=== PATIENT | female | born 1990 | race African-American/Black ===

== ENCOUNTER 2018-07-10 07:47 | Emergency (ER) | payer MEDICARE, MEDICAID ==
[~2018-07-10] VITALS: Ht 160 cm; Wt 59.0 kg
[~2018-07-10 07:47] MED LIST: FEOSOL45 MG PO; FIORICET PO; LORTAB 5-325 MG1 TAB PO
[2018-07-10 08:43] LABS: HEMATOCRIT 42.7 % (37.0-47.0); HEMOGLOBIN 14.6 g/dl (12.0-16.0); MEAN CORPUSCULAR HGB 30.5 pG CALC (26.0-32.0); MEAN CORPUSCULAR HGB CONC 34.2 g/L CALC (32.0-36.0); NEUT# 1.66 thou/uL (2.00-7.15); RED BLOOD COUNT 4.78 mill/uL (4.20-5.60); RED CELL DISTRI WIDTH 12.4 % (11.5-15.5)
[2018-07-10 09:01] LABS: URINE BILIRUBIN - DIPSTICK NEGATIVE (NEGATIVE); URINE BLOOD DIPSTICK NEGATIVE (NEGATIVE); URINE COLOR YELLOW; URINE GLUCOSE - DIPSTICK NEGATIVE (NEGATIVE); URINE KETONE NEGATIVE (NEGATIVE); URINE LEUK ESTERASE NEGATIVE (NEGATIVE); URINE NITRITE - DIPSTICK NEGATIVE (Negative); URINE PH 7.5 (4.5-8.0); URINE PROTEIN - DIPSTICK NEGATIVE (NEG-TRACE); URINE SPECIFIC GRAVITY <=1.005; URINE UROBILINOGEN - DIPSTICK 0.2 E.U./dL (0.2)
[2018-07-10 09:02] LABS: ALBUMIN 4.5 g/dL (3.2-5.0); ALKALINE PHOSPHATASE 45 u/l (38-126); ANION GAP 16 (6-22 (CALC)); BILIRUBIN, TOTAL 0.7 mg/dL (0.0-1.4); BUN 6 mg/dL (7-17); BUN/CREATININE RATIO 10 (12-20 (CALC)); CARBON DIOXIDE 25 mmol/l (22-30); CHLORIDE 104 mmol/l (95-108); CREATININE 0.6 mg/dL (0.5-1.0); GFR > 60 ML/MIN (>=60 (CALC)); GFR FOR AFR.AMER. > 60 ML/MIN (>=60 (CALC)); LIPASE 59 u/l (23-300); POTASSIUM 3.5 mmol/l (3.5-5.1); SGOT/AST 28 u/l (14-36); SGPT/ALT 106 u/l (9-52); SODIUM 142 mmol/l (137-146)
[2018-07-10 09:03] LABS: MEAN CELL VOLUME 89.3 fL CALC (80.0-100.0)
[2018-07-10 09:04] LABS: URINE CLARITY CLEAR
[2018-07-10 09:22] LABS: BETA-HCG, QUANT(RESULT NUMBER) <2 mIU/mL
[2018-07-10] MEDS ORDERED: RANITIDINE75 MG/5 M1 PO (11:33)
[2018-07-10 11:53] VITALS: BP 118/68
== END 2018-07-10 12:00 | disposition home or self-care (01) ==
LOC: ED 07:47
PROVIDERS: Family Medicine
DX: R10.33 Periumbilical pain (principal)

== ENCOUNTER 2018-08-18 10:03 | Emergency (ER) | payer MEDICARE, MEDICAID ==
[~2018-08-18] VITALS: Ht 160 cm; Wt 60.8 kg
[~2018-08-18 10:03] MED LIST changes: +RANITIDINE75 MG/5 M1 PO
[2018-08-18 10:30] LABS: URINE BILIRUBIN - DIPSTICK NEGATIVE (NEGATIVE); URINE BLOOD DIPSTICK LARGE (NEGATIVE); URINE CLARITY SL CLOUDY; URINE COLOR YELLOW; URINE GLUCOSE - DIPSTICK NEGATIVE (NEGATIVE); URINE KETONE NEGATIVE (NEGATIVE); URINE LEUK ESTERASE NEGATIVE (NEGATIVE); URINE NITRITE - DIPSTICK NEGATIVE (Negative); URINE PH 7.5 (4.5-8.0); URINE PROTEIN - DIPSTICK NEGATIVE (NEG-TRACE); URINE SPECIFIC GRAVITY 1.015
[2018-08-18 10:38] LABS: URINE SQUAMOUS EPITHELIAL CELL MODERATE EPI/hpf (0-FEW)
[2018-08-18 10:39] LABS: URINE BACTERIA FEW hpf; URINE MUCUS FEW hpf (NONE-FEW)
[2018-08-18 11:37] VITALS: BP 124/87
== END 2018-08-18 11:47 | disposition home or self-care (01) ==
LOC: ED 10:03
PROVIDERS: Family Medicine
DX: N91.2 Amenorrhea, unspecified (principal)

== ENCOUNTER 2019-08-19 23:20 | Emergency (ER) | payer MEDICARE, MEDICAID ==
[~2019-08-19] VITALS: Ht 160 cm; Wt 61.4 kg
[2019-08-20] MEDS ORDERED: TORADOL PO (01:56)
[2019-08-20 02:00] VITALS: BP 118/74
== END 2019-08-20 02:00 | disposition home or self-care (01) ==
LOC: ED 23:20
DX: S16.1XXA Strain of muscle, fascia and tendon at neck level, initial encounter (principal); S29.012A Strain of muscle and tendon of back wall of thorax, initial encounter; Y04.2XXA Assault by strike against or bumped into by another person, initial encounter

== ENCOUNTER 2020-03-12 13:50 | Emergency (ER) | payer MEDICARE, MEDICAID ==
[~2020-03-12 13:50] MED LIST changes: +TORADOL PO
[2020-03-12] MEDS ORDERED: FLOXIN OTIC0.3 % OT (14:20)
[2020-03-12] MEDS ORDERED: TRIAMCINOLON0.13 EX (14:21)
[2020-03-12 14:34] VITALS: BP 139/77
== END 2020-03-12 14:30 | disposition home or self-care (01) ==
LOC: ED 13:50
DX: H60.92 Unspecified otitis externa, left ear (principal); L21.0 Seborrhea capitis

== ENCOUNTER 2021-09-13 20:00 | Observation (INO) | payer MEDICARE, MEDICAID ==
[~2021-09-13] VITALS: Ht 160 cm; Wt 53.0 kg
[~2021-09-13 20:00] MED LIST changes: +FLOXIN OTIC0.3 % OT; +TRIAMCINOLON0.13 EX
[2021-09-13 21:26] LABS: HEMATOCRIT 44.8 % (37.0-47.0); HEMOGLOBIN 15.5 g/dl (12.0-16.0); IMMATURE GRANULOCYTES 0.2 % (0.0-5.0); MEAN CELL VOLUME 88.2 fL CALC (80.0-100.0); MEAN CORPUSCULAR HGB 30.5 pG CALC (26.0-32.0); MEAN CORPUSCULAR HGB CONC 34.6 g/dL CAL (32.0-36.0); NEUT# 10.44 thou/uL (2.00-7.15); RED BLOOD COUNT 5.08 mill/uL (4.20-5.60); RED CELL DISTRI WIDTH 12.2 % (11.5-15.5); URINE BILIRUBIN - DIPSTICK NEGATIVE (NEGATIVE); URINE BLOOD DIPSTICK NEGATIVE (NEGATIVE); URINE COLOR YELLOW; URINE GLUCOSE - DIPSTICK NEGATIVE (NEGATIVE); URINE KETONE >=80 mg/dL (NEGATIVE); URINE LEUK ESTERASE NEGATIVE (NEGATIVE); URINE PH 8.5 (4.5-8.0); URINE PROTEIN - DIPSTICK TRACE mg/dL (NEG-TRACE); URINE SPECIFIC GRAVITY 1.015; URINE UROBILINOGEN - DIPSTICK 0.2 E.U./dL (0.2)
[2021-09-13 21:27] LABS: URINE NITRITE - DIPSTICK NEGATIVE (Negative)
[2021-09-13 21:39] LABS: ANION GAP 19 (6-22 (CALC)); BUN 11 mg/dL (7-17); BUN/CREATININE RATIO 18 (12-20 (CALC)); CARBON DIOXIDE 20 mmol/l (22-30); CHLORIDE 104 mmol/l (95-108); CREATININE 0.6 mg/dL (0.5-1.0); ETHYL ALCOHOL 0 mg/dl (0-30); GFR > 60 ML/MIN (>=60 (CALC)); GFR FOR AFR.AMER. > 60 ML/MIN (>=60 (CALC)); LIPASE 58 u/l (23-300); MAGNESIUM 1.7 mg/dL (1.6-2.3); POTASSIUM 3.8 mmol/l (3.5-5.1); SGOT/AST 30 u/l (14-36); SODIUM 139 mmol/l (137-146); TOTAL PROTEIN 9.5 g/dL (6.3-8.2)
[2021-09-13 21:40] LABS: ALKALINE PHOSPHATASE 79 u/l (38-126)
[2021-09-13 21:50] LABS: ACT PARTIAL THROMBO TIME 23.3 SECONDS (20.0-32.5); PROTHROMBIN TIME 10.7 SECONDS (9.0-12.5)
[2021-09-14] VITALS (10 sets, daily range): BP systolic 96–123; BP diastolic 44–78
[2021-09-14] MEDS ORDERED: TRIAMCINOLON0.11 EX (01:00)
[2021-09-14 05:28] LABS: IMMATURE GRANULOCYTES 0.2 % (0.0-5.0); MEAN CELL VOLUME 90.8 fL CALC (80.0-100.0); MEAN CORPUSCULAR HGB 30.6 pG CALC (26.0-32.0); MEAN CORPUSCULAR HGB CONC 33.7 g/dL CAL (32.0-36.0); NEUT# 8.36 thou/uL (2.00-7.15); RED BLOOD COUNT 3.82 mill/uL (4.20-5.60); RED CELL DISTRI WIDTH 12.5 % (11.5-15.5)
[2021-09-14 05:39] LABS: HEMATOCRIT 34.7 % (37.0-47.0); HEMOGLOBIN 11.7 g/dl (12.0-16.0)
[2021-09-14] MEDS ORDERED: PERCOCET 5/325M1 TAB PO (11:49)
[2021-09-21] MEDS ORDERED: RESTORIL15 MG PO (11:12)
== END 2021-09-14 15:27 | disposition home or self-care (01) ==
LOC: ED 20:00 → ED-I 23:39 → ED 09-14 00:17 → MS2 09-14 00:18
PROVIDERS: ADMIT Surgery; ATTEND Surgery
PROC: 0DTJ4ZZ Resection of Appendix, Percutaneous Endoscopic Approach (ICD-10-PCS; principal; 2021-09-14)
DX: K35.30 Acute appendicitis with localized peritonitis, without perforation or gangrene (principal); E86.0 Dehydration; Z86.16 Personal history of COVID-19; Z20.822 Contact with and (suspected) exposure to COVID-19
CPT/HCPCS: J0131; J2710; Q9967

== ENCOUNTER 2021-10-05 09:34 | Emergency (ER) | payer MEDICARE, MEDICAID ==
[~2021-10-05] VITALS: Ht 160 cm; Wt 65.0 kg
[~2021-10-05 09:34] MED LIST changes: +PERCOCET 5/325M1 TAB PO; +RESTORIL15 MG PO; +TRIAMCINOLON0.11 EX
[2021-10-05] MEDS ORDERED: AMOX/K CLAV875 M1 PO (11:09)
[2021-10-05 11:38] VITALS: BP 122/79
== END 2021-10-05 11:38 | disposition home or self-care (01) ==
LOC: ED 09:34
DX: S50.372A Other superficial bite of left elbow, initial encounter (principal); F17.290 Nicotine dependence, other tobacco product, uncomplicated; W54.0XXA Bitten by dog, initial encounter; Z86.16 Personal history of COVID-19

== ENCOUNTER 2022-07-30 09:35 | Emergency (ER) | payer MEDICARE, OTHER ==
[~2022-07-30] VITALS: Ht 160 cm; Wt 60.0 kg
[2022-07-30] VITALS (28 sets, daily range): BP systolic 101–130; BP diastolic 70–92
[~2022-07-30 09:35] MED LIST changes: +AMOX/K CLAV875 M1 PO
== END 2022-07-30 16:49 | disposition home or self-care (01) ==
LOC: ED 09:35
DX: B34.9 Viral infection, unspecified (principal); F17.210 Nicotine dependence, cigarettes, uncomplicated; Z86.16 Personal history of COVID-19; Z20.822 Contact with and (suspected) exposure to COVID-19

== ENCOUNTER 2022-08-10 14:55 | Emergency (ER) | payer MEDICARE, OTHER ==
[~2022-08-10] VITALS: Ht 160 cm; Wt 63.0 kg
[2022-08-10 16:08] LABS: HEMATOCRIT 38.3 % (37.0-47.0); HEMOGLOBIN 13.6 g/dl (12.0-16.0); IMMATURE GRANULOCYTES 0.2 % (0.0-5.0); MEAN CELL VOLUME 85.9 fL CALC (80.0-100.0); MEAN CORPUSCULAR HGB 30.5 pG CALC (26.0-32.0); MEAN CORPUSCULAR HGB CONC 35.5 g/dL CAL (32.0-36.0); NEUT# 3.5 thou/uL (2.00-7.15); RED BLOOD COUNT 4.46 mill/uL (4.20-5.60); RED CELL DISTRI WIDTH 12.4 % (11.5-15.5)
[2022-08-10 16:36] LABS: ALBUMIN 4.3 g/dL (3.2-5.0); ALKALINE PHOSPHATASE 51 u/l (38-126); ANION GAP 16 (6-22 (CALC)); BUN 9 mg/dL (7-17); BUN/CREATININE RATIO 18 (12-20 (CALC)); CARBON DIOXIDE 18 mmol/l (22-30); CHLORIDE 106 mmol/l (95-108); CREATININE 0.5 mg/dL (0.5-1.0); GFR FOR AFR.AMER. > 60 ML/MIN (>=60 (CALC)); GFR OTHER RACES > 60 ML/MIN (>=60 (CALC)); LIPASE 42 u/l (23-300); POTASSIUM 4.8 mmol/l (3.5-5.1); SGOT/AST 27 u/l (14-36); SODIUM 135 mmol/l (137-146); TOTAL PROTEIN 7.7 g/dL (6.3-8.2)
[2022-08-10 19:08] LABS: URINE BLOOD DIPSTICK SMALL (NEGATIVE); URINE COLOR YELLOW; URINE GLUCOSE - DIPSTICK NEGATIVE (NEGATIVE); URINE KETONE >=80 mg/dL (NEGATIVE); URINE LEUK ESTERASE NEGATIVE (NEGATIVE); URINE PROTEIN - DIPSTICK TRACE mg/dL (NEG-TRACE); URINE SPECIFIC GRAVITY >=1.030
[2022-08-10 19:09] LABS: URINE BILIRUBIN - DIPSTICK SMALL (NEGATIVE); URINE NITRITE - DIPSTICK NEGATIVE (Negative)
[2022-08-10 19:18] LABS: URINE SQUAMOUS EPITHELIAL CELL MODERATE EPI/hpf (0-FEW); URINE WBC 0-2 WBC/hpf (0-5)
[2022-08-10] MEDS ORDERED: ONDANSETRON4 MG PO (21:14)
[2022-08-10] MEDS ORDERED: CIPROFLOXACN500 MG PO (21:14)
[2022-08-10 21:42] VITALS: BP 117/81
== END 2022-08-10 22:30 | disposition home or self-care (01) ==
LOC: ED 14:55
PROVIDERS: Nurse Practitioner
DX: B34.9 Viral infection, unspecified (principal); N39.0 Urinary tract infection, site not specified; F17.200 Nicotine dependence, unspecified, uncomplicated; Z86.16 Personal history of COVID-19; Z20.822 Contact with and (suspected) exposure to COVID-19

== ENCOUNTER 2022-08-11 18:52 | Emergency (ER) | payer MEDICARE, OTHER ==
[2022-08-11] VITALS (10 sets, daily range): BP systolic 128–141; BP diastolic 72–90
[~2022-08-11] VITALS: Ht 160 cm; Wt 54.5 kg
[~2022-08-11 18:52] MED LIST changes: +CIPROFLOXACN500 MG PO; +ONDANSETRON4 MG PO
[2022-08-11 19:49] LABS: HEMOGLOBIN 14.3 g/dl (12.0-16.0); IMMATURE GRANULOCYTES 0.2 % (0.0-5.0); MEAN CELL VOLUME 86.7 fL CALC (80.0-100.0); MEAN CORPUSCULAR HGB 30.2 pG CALC (26.0-32.0); MEAN CORPUSCULAR HGB CONC 34.9 g/dL CAL (32.0-36.0); NEUT# 3.56 thou/uL (2.00-7.15); RED BLOOD COUNT 4.73 mill/uL (4.20-5.60); RED CELL DISTRI WIDTH 12.1 % (11.5-15.5)
[2022-08-11 20:00] LABS: ALKALINE PHOSPHATASE 66 u/l (38-126); ANION GAP 17 (6-22 (CALC)); BILIRUBIN, TOTAL 0.7 mg/dL (0.0-1.4); BUN 12 mg/dL (7-17); BUN/CREATININE RATIO 21 (12-20 (CALC)); CHLORIDE 100 mmol/l (95-108); CREATININE 0.6 mg/dL (0.5-1.0); GFR FOR AFR.AMER. > 60 ML/MIN (>=60 (CALC)); GFR OTHER RACES > 60 ML/MIN (>=60 (CALC)); SGOT/AST 21 u/l (14-36); SODIUM 135 mmol/l (137-146)
[2022-08-11 20:01] LABS: CARBON DIOXIDE 22 mmol/l (22-30)
[2022-08-11 20:39] LABS: URINE BILIRUBIN - DIPSTICK NEGATIVE (NEGATIVE); URINE BLOOD DIPSTICK SMALL (NEGATIVE); URINE COLOR YELLOW; URINE GLUCOSE - DIPSTICK NEGATIVE (NEGATIVE); URINE KETONE 15 mg/dL (NEGATIVE); URINE LEUK ESTERASE NEGATIVE (NEGATIVE); URINE PROTEIN - DIPSTICK NEGATIVE (NEG-TRACE); URINE UROBILINOGEN - DIPSTICK 0.2 E.U./dL (0.2)
[2022-08-11 20:41] LABS: URINE NITRITE - DIPSTICK NEGATIVE (Negative)
[2022-08-11 20:46] LABS: URINE SQUAMOUS EPITHELIAL CELL FEW EPI/hpf (0-FEW); URINE WBC 0-2 WBC/hpf (0-5)
== END 2022-08-11 21:08 | disposition home or self-care (01) ==
LOC: ED 18:52
PROVIDERS: Nurse Practitioner
DX: F41.9 Anxiety disorder, unspecified (principal); R07.89 Other chest pain; F17.200 Nicotine dependence, unspecified, uncomplicated; Z86.16 Personal history of COVID-19

== ENCOUNTER 2022-08-12 11:43 | Emergency (ER) | payer MEDICARE, MEDICAID ==
[~2022-08-12] VITALS: Ht 160 cm; Wt 63.6 kg
[2022-08-12 12:44] LABS: URINE BILIRUBIN - DIPSTICK NEGATIVE (NEGATIVE); URINE BLOOD DIPSTICK MODERATE (NEGATIVE); URINE COLOR YELLOW; URINE GLUCOSE - DIPSTICK 100 mg/dL (NEGATIVE); URINE KETONE TRACE mg/dL (NEGATIVE); URINE LEUK ESTERASE NEGATIVE (NEGATIVE); URINE PROTEIN - DIPSTICK NEGATIVE (NEG-TRACE); URINE SPECIFIC GRAVITY 1.015
[2022-08-12 12:48] LABS: URINE NITRITE - DIPSTICK NEGATIVE (Negative)
[2022-08-12 13:28] LABS: HEMATOCRIT 36.8 % (37.0-47.0); IMMATURE GRANULOCYTES 0.2 % (0.0-5.0); MEAN CORPUSCULAR HGB 30.4 pG CALC (26.0-32.0); MEAN CORPUSCULAR HGB CONC 35.3 g/dL CAL (32.0-36.0); NEUT# 3.49 thou/uL (2.00-7.15); RED BLOOD COUNT 4.28 mill/uL (4.20-5.60); RED CELL DISTRI WIDTH 12.2 % (11.5-15.5)
[2022-08-12 13:57] LABS: ETHYL ALCOHOL 0 mg/dl (0-30)
[2022-08-12 15:04] LABS: ALBUMIN 4.1 g/dL (3.2-5.0); ALKALINE PHOSPHATASE 44 u/l (38-126); ANION GAP 16 (6-22 (CALC)); BILIRUBIN, TOTAL 0.6 mg/dL (0.0-1.4); BUN 6 mg/dL (7-17); BUN/CREATININE RATIO 12 (12-20 (CALC)); CARBON DIOXIDE 20 mmol/l (22-30); CHLORIDE 104 mmol/l (95-108); CREATININE 0.5 mg/dL (0.5-1.0); GFR FOR AFR.AMER. > 60 ML/MIN (>=60 (CALC)); GFR OTHER RACES > 60 ML/MIN (>=60 (CALC)); POTASSIUM 3.8 mmol/l (3.5-5.1); SGOT/AST 23 u/l (14-36); SODIUM 137 mmol/l (137-146); TOTAL PROTEIN 7.3 g/dL (6.3-8.2)
[2022-08-12 20:18] VITALS: BP 145/89
[2022-08-12 21:00] VITALS: BP 117/74
[2022-08-12 22:00] VITALS: BP 169/146
[2022-08-12 22:23] VITALS: BP 100/70
[2022-08-12 23:00] VITALS: BP 97/73
[2022-08-12 23:52] VITALS: BP 123/89
== END 2022-08-13 ==
LOC: ED 11:43
PROVIDERS: Family Medicine; Nurse Practitioner
DX: F23 Brief psychotic disorder (principal); F31.9 Bipolar disorder, unspecified; F17.200 Nicotine dependence, unspecified, uncomplicated; Z86.16 Personal history of COVID-19; Z20.822 Contact with and (suspected) exposure to COVID-19
CPT/HCPCS: S0166